=== PATIENT | male | born 1935 | race Caucasian/White ===

== ENCOUNTER 2018-09-22 09:43 | Observation (INO) ==
[2018-09-22 10:23] LABS: BASO# 0.04 X1000 (0.0-0.2); BASO% 0.4 % (0.0-0.8); EOS# 0.09 X1000 (0.0-0.7); EOS% 0.9 % (0.0-10.0); HEMATOCRIT 42.5 % (42.0-52.0); HEMOGLOBIN 14.3 g/dL (14.0-18.0); IMM GRAN# 0.06 X1000 (0.0-0.04); IMM GRAN% 0.6 % (0.0-0.5); LYMPH# 1.55 X1000 (1.2-3.4); LYMPH% 14.9 % (20.5-51.1); MCH 30.4 PG (27-31); MCHC 33.6 g/dL (33-37); MCV 90.4 FL (81-99); MONO# 0.97 X1000 (0.11-0.59); MONO% 9.3 % (1.7-9.3); MPV 11.1 FL (7.4-10.4); NEUT# 7.72 X1000 (1.4-6.5); NEUT% 73.9 % (42.2-75.2); PLT 147 X1000 (130-400); RDW 13.5 % (11.5-14.5); WBC 10.43 X1000 (4.8-10.8)
--- NOTE | 2018-09-22 10:32 | EKG Report ---
Test Performed on : 09/22/2018 09:55:26 AM Test Reason : syncope Blood Pressure : / mmHG Vent. Rate : 068 BPM Atrial Rate : 068 BPM P-R Int : 150 ms QRS Dur : 068 ms QT Int : 438 ms P-R-T Axes : 061 -08 -16 degrees QTc Int : 465 ms Sinus rhythm. with premature supraventricular complexes. Otherwise normal ECG When compared with ECG of 27-MAR-2015 07:59, Questionable change in QRS axis Unconfirmed Result
[2018-09-22] MEDS ORDERED: NS 1,000 ML IV ONE ×2 (10:36→14:27)
[2018-09-22 10:41] LABS: AGAP 16; ALBUMIN 4.7 g/dL (3.5-5.0); ALKALINE PHOSPHATASE 80 U/L (32-122); BUN 23 mg/dL (8-22); CALCIUM 9.6 mg/dL (8.8-10.2); CHLORIDE 96 mmol/L (98-107); COSMO 281; CREATININE 1.1 mg/dL (0.7-1.2); ESTIMATED GFR > 60; GLUCOSE 120 mg/dL (70-104); GOT 18 U/L (10-34); GPT 25 U/L (10-44); MAGNESIUM 1.9 mg/dL (1.5-2.7); POTASSIUM 4.7 mmol/L (3.5-5.1); SODIUM 138 mmol/L (136-145); TCO2 26 mmol/L (25-35); TOTAL PROTEIN 7.3 g/dL (6.3-8.3)
[2018-09-22 10:44] LABS: INR 1.06; PROTIME 14.3 Seconds (11.0-16.0)
--- NOTE | 2018-09-22 10:53 | Diag Imaging Result Doc PS360 ---
CT HEAD W/O CONTRAST - 09/22/2018 INDICATION: fall COMPARISON: None FINDINGS: The ventricles and sulci are normal in size and contour. There is some mild scattered cerebral white matter hypodensity compatible with chronic microvascular disease. No intracranial mass or hemorrhage. The skull is intact. The sinuses are clear. IMPRESSION: No acute disease. This exam was performed using automated exposure control, adjustment of mA or kV according to patient size, and/or use of iterative reconstruction technique Electronically signed by Oneil Elias 09/22/2018 10:51 AM
[2018-09-22 10:59] LABS: CK INDEX 2.8 (0.0-2.5); CK-MB 5.92 ng/mL (0.0-5.0)
--- NOTE | 2018-09-22 11:04 | Diag Imaging Result Doc PS360 ---
EXAM: CHEST-1 VIEW - 09/22/2018 HISTORY: hypotension TECHNIQUE: One view chest COMPARISON: 08/05/2016 FINDINGS: Heart size is normal. There are postsurgical changes on the left appear stable. The lungs otherwise appear clear. There is no vascular congestion, pleural effusion, or pneumothorax identified. IMPRESSION: No evidence of acute disease. Electronically signed by Vic Paez 09/22/2018 11:02 AM
[2018-09-22 11:57] LABS: URINE SOURCE VOIDED
[2018-09-22 12:14] LABS: BILIRUBIN URINE NEGATIVE (NEGATIVE); BLOOD URINE NEGATIVE (NEGATIVE); CLARITY CLEAR (CLEAR); COLOR YELLOW; GLUCOSE URINE NEGATIVE (NEGATIVE); KETONE URINE NEGATIVE (NEGATIVE); LEUKOCYTES URINE NEGATIVE (NEGATIVE); NITRITE URINE NEGATIVE (NEGATIVE); PROTEIN URINE NEGATIVE (NEGATIVE); UROBILINOGEN URINE NORMAL
--- NOTE | 2018-09-22 12:27 | EKG Report ---
Test Performed on : 09/22/2018 11:33:56 AM Test Reason : repeat Blood Pressure : / mmHG Vent. Rate : 064 BPM Atrial Rate : 064 BPM P-R Int : 152 ms QRS Dur : 072 ms QT Int : 456 ms P-R-T Axes : 076 -15 -22 degrees QTc Int : 470 ms Sinus rhythm. with marked sinus arrhythmia. Otherwise normal ECG When compared with ECG of 22-SEP-2018 09:55, (Unconfirmed) premature supraventricular complexes. are no longer present Unconfirmed Result
[2018-09-22] MEDS ORDERED: NORCO-10 PO PRN (15:20)
[2018-09-22] MEDS ORDERED: NS 500 ML IV ONE (15:23)
[2018-09-22] MEDS ORDERED: NS 1,000 ML IV SCH (15:30)
[2018-09-22 16:44] LABS: CK INDEX 2.4 (0.0-2.5); CK-MB 5.12 ng/mL (0.0-5.0)
[2018-09-22] MEDS: MEGACE PO SCH (17:23)
[2018-09-22] MEDS: PRILOSEC PO SCH (17:23)
[2018-09-22] MEDS: ZYLOPRIM PO SCH (17:23)
--- NOTE | 2018-09-22 19:16 | Diag Imaging Result Doc PS360 ---
CT ANGIOGRM PULMONARY ARTERIES - 09/22/2018 INDICATION: elevated ddimer, syncope TECHNIQUE: Axial CT images were obtained after administering intravenous contrast. Coronal MIP images were generated. COMPARISON: None FINDINGS: There is no pulmonary embolism. Heart and great vessels are normal. There are cholecystectomy clips. Otherwise upper abdominal images are normal. There is some mild peripheral scarring in the lingula. Otherwise the lungs are clear. There are moderate degenerative changes of the spine. No acute or suspicious bony lesion. IMPRESSION: No acute disease. This exam was performed using automated exposure control, adjustment of mA or kV according to patient size, and/or use of iterative reconstruction technique Electronically signed by Oneil Elias 09/22/2018 7:14 PM
--- NOTE | 2018-09-22 21:38 | HISTORY AND PHYSICAL ---
CHIEF COMPLAINT: Syncope. HISTORY OF PRESENT ILLNESS: This is an 83-year-old gentleman who presented to the emergency room after having a syncopal episode. He stated at 4 a.m. he was walking to his bed from the bathroom. He fell. He was able to get himself back to the bed. Then about 2 hours later, he was standing, urinating and woke up on the floor. He denied any dizziness, any palpitations, or any incontinence of urine or stool. PAST MEDICAL HISTORY: 1. BPH. 2. Neurogenic bladder. 3. Hypertension. 4. Irregular heart rhythm, status post ablation. PAST SURGICAL HISTORY: Lung surgery and cardiac ablation. SOCIAL HISTORY: He denies alcohol, tobacco, or illicit drug use. ALLERGIES: Lipitor, Celebrex, Baycol, Chondroitin analogs, Biaxin, Welchol, Tricor, Lopid, glucosamine, ketoconazole, niacin, Lovaza, and sulfa drugs all with unknown reactions. HOME MEDICATIONS: A list will be obtained by the nursing staff, and once verified, we will review and restart as appropriate. REVIEW OF SYSTEMS: Discussed with patient with pertinent positives stated in the HPI. He denied any dizziness, any chest pain or palpitations, any fevers or chills, any cough, shortness of breath, wheezing, PND, orthopnea, nausea, vomiting, diarrhea, constipation, black or bloody vomitus or stools, hematuria, dysuria, frequency, urgency. PHYSICAL EXAMINATION: GENERAL: This is an 83-year-old gentleman who is sitting up in the bed in no distress. VITAL SIGNS: Blood pressure is 129/68 with a heart rate of 65, respirations are 18, temperature is 98.5 degrees oral with room air sats 99% to 100%. EYES: Pupils are equal, round, react to light. EOMs are intact. HEENT: Head is normocephalic, atraumatic. Mucous membranes are moist. NECK: Supple with trachea midline. CARDIOVASCULAR: Regular rate and rhythm. S1 and S2 are appreciated. Calves are nontender with peripheral pulses palpable x4 extremities. PULMONARY: Breath sounds are clear with no increased work of breathing noted. Chest rises and falls symmetrically with respiration. GASTROINTESTINAL: Abdomen is soft, nontender, nondistended with bowel sounds in all 4 quadrants. NEUROLOGIC: He is alert and oriented x3. SKIN: Warm and dry with an abrasion to the left side of his nose. LABORATORY DATA: WBC is 10.4 with a hemoglobin of 14.3, hematocrit 42.5, and platelets of 147,000. INR is 1.06 with a D-dimer of 0.55. Sodium 138, potassium 4.7, BUN 23, creatinine 1.1 with a glucose of 120. Troponins are negative on multiple occasions. CPK 208, CK-MB 5.12. IMAGIN. CT of the head reveals no acute disease. There is no intracranial mass or hemorrhage. Skull is intact. Sinuses are clear. There is some mild scattered cerebral white matter hypodensity compatible with chronic microvascular disease. 2. Chest x-ray revealed no evidence of acute disease. ASSESSMENT AND PLAN: 1. Syncope. We will get a carotid Doppler as well as neuro checks. We will do orthostatic vital signs. 2. Elevated D-dimer. We will get a CTA pulmonary as well as a lower extremity Doppler. 3. Benign prostatic hypertrophy. Aware. 4. History of atrial fibrillation, status post cardiac ablation. Aware. 5. Hypertension. We will continue his home medications and trend vital signs. Identify his home medications and continue this as appropriate. CBC and CMP in the morning. Check a TSH. Further treatments pending hospital course. Dictated by ELAN Talley for Addison Gallegos MD This chart was documented by, ELAN Talley and accurately reflects the services performed, treatment plan and medical decisions as attested by the providers signature Addsion Gallegos MD. cc: ELAN Talley MD [facility]
--- NOTE | 2018-09-23 01:41 | HISTORY AND PHYSICAL ---
ADDENDUM: Patient seen and examined by myself. Full note dictated and discussed with nurse practitioner. The patient is an 83-year-old male who presents to the emergency department with his daughter. Notes that he was in his usual state of health until yesterday. He states he felt a little tired this morning when he attempted to get up to go to the restroom, started having shortness of breath and felt as though he was going to pass out. He then went back to the restroom later and this time on his return trip to his bed, he noted that he passed out, fell and hit the floor. Denies hitting his head. Denies any focal numbness, tingling or weakness. ALLERGIES: Atorvastatin, Celebrex, Baycol, Biaxin, TriCor, glucosamine, Lopid, omega-3 fatty acids and sulfa. MEDICATIONS: Allopurinol 300, torsemide 20, omeprazole 40, Lopressor 100 and [place]. PLAN: We will admit patient to the hospital. He is currently orthostatics. We will place him on IV fluids. We will give him another 500 mL bolus. So far cardiac enzymes are negative. We will repeat these. EKGs are normal. Chest x-ray is clear. cc: Addison Gallegos MD
[2018-09-23] MEDS: PRILOSEC PO SCH (06:13)
[2018-09-23 06:15] LABS: HEMATOCRIT 37.7 % (42.0-52.0); HEMOGLOBIN 12.5 g/dL (14.0-18.0); MCH 30.4 PG (27-31); MCHC 33.2 g/dL (33-37); MCV 91.7 FL (81-99); MPV 11.2 FL (7.4-10.4); RBC 4.11 XMIL (4.7-6.1); RDW 13.6 % (11.5-14.5); WBC 8.98 X1000 (4.8-10.8)
[2018-09-23 06:51] LABS: AGAP 12; ALBUMIN 3.6 g/dL (3.5-5.0); ALKALINE PHOSPHATASE 66 U/L (32-122); BUN 18 mg/dL (8-22); CALCIUM 8.4 mg/dL (8.8-10.2); CHLORIDE 104 mmol/L (98-107); COSMO 284; ESTIMATED GFR > 60; GLUCOSE 106 mg/dL (70-104); GOT 15 U/L (10-34); GPT 18 U/L (10-44); SODIUM 141 mmol/L (136-145); TCO2 25 mmol/L (25-35); TOTAL PROTEIN 5.9 g/dL (6.3-8.3)
[2018-09-23] MEDS: ZYLOPRIM PO SCH (10:06)
[2018-09-23] MEDS: MEGACE PO SCH (10:06)
[2018-09-23 11:26] VITALS: BP 116/61
--- NOTE | 2018-09-23 15:21 | Extremity Venous Study ---
EXAM: Carotid Ultrasound 09/23/2018 HISTORY: syncope TECHNIQUE: Carotid Doppler ultrasound COMMENT: There is mild atherosclerotic plaque formation present in the left and right carotid bulbs. There is no evidence of hemodynamically significant stenosis by velocity criteria. There is antegrade flow in both vertebral arteries. IMPRESSION: No evidence of hemodynamically significant stenosis. Electronically signed by Cheo Ding 09/23/2018 3:19 PM
--- NOTE | 2018-09-24 08:30 | DISCHARGE SUMMARY ---
ADMISSION DATE: 09/22/2018 DISCHARGE DATE: 09/23/2018 DIAGNOSES: 1. Syncope. 2. Elevated D-dimer with a CTA pulmonary negative for pulmonary embolism and bilateral lower extremity Doppler negative for deep venous thrombosis. 3. Benign prostatic hypertrophy. 4. History of atrial fibrillation, status post cardiac ablation. 5. Hypertension. DIAGNOSTICS: 1. CT of the head revealed no acute disease. 2. Carotid Doppler revealed no evidence of hemodynamically significant stenosis. 3. Bilateral lower extremity Doppler preliminary read is no DVT. HOSPITAL COURSE: Mr. Pope presented to the emergency room after having a syncopal episode. There was no report of any bowel or bladder incontinence. He had no injury. He had no further syncopal episodes while in the hospital. Telemetry revealed no dysrhythmias. Vital signs have been stable and thankfully he is ready for discharge. PHYSICAL EXAMINATION: Discharge Vital Signs: Blood pressure is 116/61, with a heart rate of 84, respirations 18, temperature is 98 degrees oral, with room air saturations 98%. Cardiovascular: Regular rate and rhythm. S1 and S2 are appreciated. Pulmonary: Breath sounds are clear with no increased work of breathing noted. Gastrointestinal: Abdomen is soft, nontender, nondistended, with bowel sounds in all 4 quadrants. Extremities: No clubbing, cyanosis, or edema. Calves are nontender. Pulses are palpable x4 extremities. FOLLOWUP: He needs to follow up with his primary care provider, Dr. Morales. He needs to call Tuesday to schedule an appointment in the next 1 to 2 weeks. DISCHARGE MEDICATIONS: 1. Torsemide 20 mg p.o. daily. 2. Ramipril 10 mg p.o. daily. 3. Omeprazole 40 mg p.o. daily. 4. Lopressor 100 mg p.o. daily. 5. Megace 20 mg p.o. daily. 6. Pradaxa 300 mg p.o. daily. 7. Allopurinol 300 mg p.o. daily. DISPOSITION: He is being discharged home in stable condition with family members. He has been instructed to call to be seen sooner or return to the emergency room for any further syncopal episodes, dizziness, any chest pain, palpitations, any shortness of breath, temperature greater than 101, any nausea, vomiting, diarrhea, constipation, black or bloody vomitus or stools, or for any questions or concerns that he may have. Dictated by Lucretia J. Slaten, NEWS PRODUCTION SUPERVISOR for Addison Gallegos MD This chart was documented by, ELAN Talley and accurately reflects the services performed, treatment plan and medical decisions as attested by the providers signature Addison Gallegos MD. cc: ELAN Talley MD Bhavna Gowda, MD
--- NOTE | 2018-09-24 11:07 | DISCHARGE SUMMARY ---
ADMISSION DATE: 09/22/2018 DISCHARGE DATE: 09/23/2018 ADDENDUM: Patient seen and examined by myself. Full note dictated and discussed with nurse practitioner. Patient presented to the hospital after a syncopal episode. Workup in the ER was noted to have an elevated D-dimer. This has been cleared. CTA has been negative. Thankfully, the patient has had no further complications. Most likely the cause was volume depletion. He was given IV fluids and is currently stable and is in no distress. He will be discharged home and follow up outpatient with his primary care. Please see full note. cc: Addison Gallgeos MD
--- NOTE | 2018-09-25 10:20 | Extremity Venous Study ---
EXAM: Venous U/S Bilateral Legs - 09/23/2018 HISTORY: elevated d-dimer, syncope TECHNIQUE: Bilateral lower extremity Doppler venous ultrasound COMPARISON: None. FINDINGS: The deep veins of the bilateral lower extremities demonstrate flow and compressibility. There are no filling defects identified. IMPRESSION: No evidence of deep venous thrombosis in either lower extremity. Electronically signed by Vic Paez 09/25/2018 10:18 AM
== END 2018-09-23 15:18 | disposition home or self-care (01) ==
LOC: P.ED 09:43 → INTOOBSV 13:23 → P.MEDSURG 13:23
PROVIDERS: ATTEND Family Medicine
CPT/HCPCS: 70450; 71010; 71045; 71275; 80053; 82550; 82553; 82948; 83735; 83880; 84443; 84484; 85025; 85027; 85379; 85610; 93005; 93880; 93970; 96360; 99285; A9270; G0378; J7030; J7040; Q9967; S0179; XXXXX